=== PATIENT | male | born 1975 | race Caucasian/White ===

== ENCOUNTER 2022-03-13 17:18 | Emergency (ER) | payer SELFPAY ==
[~2022-03-13] VITALS: Ht 188 cm; Wt 84.1 kg
[2022-03-13 18:11] VITALS: BP 128/88
== END 2022-03-13 21:14 | disposition left against medical advice (07) ==
LOC: ER 17:18
DX: M54.59 Other low back pain (principal); Z53.21 Procedure and treatment not carried out due to patient leaving prior to being seen by health care provider

== ENCOUNTER 2025-04-02 14:35 | Emergency (ER) | payer MEDICAID, OTHER ==
[~2025-04-02] VITALS: Ht 188 cm; Wt 79.5 kg
--- NOTE | 2025-04-02 14:55 | ED.PDOC ---
HPI Comments This is a 49 year-old male, with a PMHX of Carditis and Mitral Valve issues, who presents to the ED via EMS with a chief complaint of pacemaker malfunction. Patient states that prior to the pacemaker going off, he experienced right sided chest pain. Patient reports additional symptoms of fatigue as of recently. Patient reports having heart surgery X3 years ago for Carditis and Mitral Valve issues. Upon evaluation, patients HR varies between the 130s to 150s. Patient has no further complaints at this time and otherwise denies cough, SOB, fever, chills, N/V/D, or palpitations. Time Seen by MD: 14:44 Reviewed Notes: Nurses Notes, Financial Solutions Advisor Notes, Medications, Allergies Allergies: Coded Allergies: NO KNOWN ALLERGIES (Unverified , 04/02/25) Information Source: Patient, Emergency Med Personnel Mode of Arrival: EMS Severity: Moderate Timing: Minutes Duration: Since onset Location: Chest (R) Radiation: No Radiation Onset: At Rest, With Light Exertion, With Heavy Exertion Associated Signs and Symptoms: Other (fatigue ) Past Medical History Past Medical History (Other): carditis Surgical History (Other): heart surgery Family History Family History: Reviewed,noncontributory to illness, No family hx of Cancer, No family hx of DM, No family hx of Heart telly, No family hx of HTN, No family hx ofKidney telly, No family hx of Liver telly, No family hx of Lung telly, No family hx of Stroke Social History Smoker: Non-Smoker Alcohol: Denies ETOH Use Drugs: Denies Drug Use Lives In: Home Constitutional: reports: fatigue; denies: chills, diaphoresis, fever, malaise, sweats, weakness, others EENTM: denies: blurred vision, double vision, ear bleeding, ear discharge, ear drainage, ear pain, ear ringing, eye pain, eye redness, hearing loss, mouth pain, mouth swelling, nasal discharge, nose bleeding, nose congestion, nose pain, photophobia, tearing, throat pain, throat swelling, voice changes, others Respiratory: denies: cough, hemoptysis, orthopnea, SOB at rest, shortness of breath, SOB with excertion, stridor, wheezing, others Cardiovascular: reports: chest pain, others (pacemaker went off ); denies: dizzy spells, diaphoresis, Dyspnea on exertion, edema, irregular heart beat, left arm pain, lightheadedness, palpitations, PND, syncope Gastrointestinal: denies: abdomen distended, abdominal pain, blood streaked bowels, constipated, diarrhea, dysphagia, difficulty swallowing, hematemesis, me bayron, nausea, poor appetite, poor fluid intake, rectal bleeding, rectal pain, vomiting, others Genitourinary: denies: burning, dysuria, flank pain, frequency, hematuria, incontinence, penile discharge, penile sore, pain, testicle pain, testicle swelling, urgency, others Neurological: denies: dizziness, fainting, headache, left sided numbness, left sided weakness, numbness, paresthesia, pre-existing deficit, right sided numbness, right sided weakness, seizure, speech problems, tingling, tremors, weakness, others Musculoskeletal: denies: back pain, gout, joint pain, joint swelling, muscle pain, muscle stiffness, neck pain, others Integumetry: denies: bruises, change in color, change in hair/nails, dryness, laceration, lesions, lumps, rash, wounds, others Allergic/Immunocompromised: denies: Difficulty Healing, Frequent Infections, Hives, Itching, others Hematologic/Lymphatic: denies: anemia, blood clots, easy bleeding, easy bruising, swollen glands, others Endocrine: denies: excessive hunger, excessive sweating, excessive thirst, excessive urination, flushing, intolerance to cold, intolerance to heat, unexplained weight gain, unexplained weight loss, others Psychiatric: denies: anxiety, bipolar disorder, depression, hopeless, panic disorder, schizophrenia, sleepless, suicidal, others All Other Systems: Reviewed and Negative Physical Exam General Appearance: Moderate Distress HEENT: Normal ENT Inspection, Pharynx Normal, TMs Normal Neck: Full Range of Motion, Non-Tender, Normal, Normal Inspection Respiratory: Chest Non-Tender, Lungs Clear, No Accessory Muscle Use, No Respiratory Distress, Normal Breath Sounds Cardiovascular: No Edema, No JVD, No Murmur, No Gallop, Normal Peripheral Pulses, Regular Rate/Rhythm Breast Exam: Deferred Gastrointestinal: No Organomegaly, Non Tender, No Pulsatile Mass, Normal Bowel Sounds, Soft Genitalia: Deferred Pelvic: Deferred Rectal: Deferred Extremities: No calf tenderness, Normal capillary refill, Normal inspection, Normal range of motion, Non-tender, No pedal edema Musculoskeletal : Apperance: Normal Neurologic: Alert, dietetic assistant II-XII nml as Tested, No Motor Deficits, Normal Affect, Normal Mood, No Sensory Deficits Cerebellar Function: Normal Reflexes: Normal Skin: Dry, Normal Color, Warm Peripheral Pulses: 3+ Radial (R), 3+ Radial (L) Lymphatic: No Adenopathy EKG EKG : Pulse Rate (adult): 138 Premier: Normal Cardiac Rhythm: Afib Block: None Hypertrophy: None ST: Normal Was a procedure done? Was a procedure done?: No CP Differential Dx Differential Diagnosis: A-fib, A-Flutter, Angina, Anxiety / Panic Attack, Atrial Dysrhythmia, Electrolyte Disorder, Hyperthyroidism Differential Diagnosis: HTN Essential Differential Diagnosis: Chest Wall Pain X-Ray, Labs, Meds, VS Vital Signs Date Time Temp Pulse Resp B/P (MAP) Pulse Ox O2 Delivery O2 Flow Rate FiO2 04/02/25 15:43 98.4 86 16 101/66 (78) 97 98.4 04/02/25 15:43 86 16 97 Room Air* 0 21 04/02/25 14:55 138 04/02/25 14:40 138 04/02/25 14:38 100.0 159 16 116/84 100 100.0 Lab Test 04/02/25 15:15 Range/Units White Blood Count 12.3 H 4.4-10.8 10^3/uL Red Blood Count 4.57 4.5-5.90 10^6/uL Hemoglobin 15.5 13.5-17.5 g/dL Hematocrit 43.8 41.0-53.0 % Mean Corpuscular Volume 95.9 80.0-100.0 fL Mean Corpuscular Hemoglobin 33.9 H 28.0-32.0 pg Mean Corpuscular Hemoglobin Concent 35.3 32.0-36.0 g/dL Red Cell Distribution Width 12.5 11.8-14.3 % Platelet Count 211 140-450 10^3/uL Mean Platelet Volume 7.9 6.9-10.8 fL Neutrophils (%) (Auto) 79.0 37.0-80.0 % Lymphocytes (%) (Auto) 8.6 L 10.0-50.0 % Monocytes (%) (Auto) 10.2 0.0-12.0 % Eosinophils (%) (Auto) 1.6 0.0-7.0 % Basophils (%) (Auto) 0.6 0.0-2.0 % Neutrophils # (Auto) 9.7 H 1.6-8.6 10 ^3/uL Lymphocytes # (Auto) 1.1 0.4-5.4 10 ^3/uL Monocytes # (Auto) 1.3 0-1.3 10 ^3/uL Eosinophils # (Auto) 0.2 0-0.8 10 ^3/uL Basophils # (Auto) 0.1 0-0.2 10 ^3/uL Nucleated Red Blood Cells 0.1 % Sodium Level 139 136-145 mmol/L Potassium Level 4.6 3.5-5.1 mmol/L Chloride Level 106 98-107 mmol/L Carbon Dioxide Level 23 20-31 mmol/L Anion Gap 10 5-15 Blood Urea Nitrogen 19 9-23 mg/dL Creatinine 1.30 0.700-1.30 mg/dL Glomerular Filtration Rate Calc 68 >90 mL/min BUN/Creatinine Ratio 14.6 10.0-20.0 Serum Glucose 103 74-106 mg/dL Calcium Level 9.2 8.7-10.4 mg/dL Total Bilirubin 2.2 H 0.2-1.0 mg/dL Aspartate Amino Transferase (AST) 28 13-40 U/L Alanine Aminotransferase (ALT) 15 7-40 U/L Alkaline Phosphatase 83 46-116 U/L Troponin I High Sensitivity Pending Total Protein 7.3 5.7-8.2 g/dL Albumin 4.5 3.2-4.8 g/dL Patient alert pain Came in because of chest pain. Possibly from Ms. Firing of his defibrillator. Vitals stable. Initial rhythm was irregular. He did have normal rhythm following. WBC slightly elevated. Possible dehydration. Hemoglobin within normal limits. Explained to the patient. Continue monitoring. Images Reviewed?: Images reviewed and evaluated by me Time of 1ST Reevaluation: 15:22 Reevaluation 1ST: Unchanged Patient Education/Counseling: Diagnosis, Treatment Family Education/Counseling: No Family Present Medical Screening: No EMC Exist At This Time SEPSIS Sepsis Screen Physician Orders Chest Portable (04/02/25 14:58) Troponin-I Hs (04/02/25 14:58) Troponin-I Hs (04/02/25 15:58) Troponin-I Hs (04/02/25 17:58) Fueler To Assess Pacemaker (04/02/25 14:58) Electrocardigram (04/02/25 16:04) Electrocardigram (04/02/25 18:04) Vital Signs Date Time Temp Pulse Resp B/P (MAP) Pulse Ox O2 Delivery O2 Flow Rate FiO2 04/02/25 15:43 98.4 86 16 101/66 (78) 97 98.4 04/02/25 15:43 86 16 97 Room Air* 0 21 04/02/25 14:55 138 04/02/25 14:40 138 04/02/25 14:38 100.0 159 16 116/84 100 100.0 Laboratory Tests Test 04/02/25 15:15 White Blood Count 12.3 10^3/uL (4.4-10.8) H Departure 1 Departure Time of Disposition: 15:55 Impression: Primary Impression: Chest pain of unknown etiology Disposition: ADMITTED INPATIENT Admit to: Med Surg Condition: Guarded Critical Care Note Critical Care Time?: No Stability Stability form required: No Heart Score Heart Score: Heart Score Response (Comments) Value History Highly Suspicious 2 EKG Normal 0 Age 45-64 1 Risk Factors 1 or 2 risk factors 1 Troponin Normal limit 0 Total 4 I personally scribed for ACE GOODWIN MD ([email or web address]) on 04/02/25 at 14:55. Electronically submitted by Yessica Aiken ([facility]). ACE GOODWIN MD Apr 02, 2025 14:55
--- NOTE | 2025-04-02 15:18 | ECG ---
[facility] Test Date: 2025-04-02 Test Time: 14:38:43 Pat Name: MERCY COTTO Department: Room: Gender: M Assistant Fitness Manager: CAITLIN : 1975 Requested By: ACE GOODWIN Order Number: [id number] Reading MD: Measurements Intervals [place] Rate: 138 P: 0 ME: 0 QRS: 166 QRSD: 108 T: -27 QT: 334 QTc: 506 Interpretive Statements Atrial fibrillation Lateral infarct, acute (LAD) Probable anteroseptal infarct, old Please click the below link to view image of tracing.
--- NOTE | 2025-04-02 15:22 | DVH ---
CHEST RADIOGRAPH REASON FOR EXAM: Shortness of breath COMPARISON: XR CHEST 1 VIEW on DOS: 12/26/23 TECHNIQUE: One view of the chest is provided FINDINGS: The cardiomediastinal silhouette is within normal limits for size. There is an AICD. There are surgical changes in the mediastinum. There is aortic valvuloplasty. There is no focal airspace d isease. There is no significant pleural effusion. There is no pneumothorax. No acute osseous abnorma lity is identified. IMPRESSION: No radiographic evidence of acute cardiopulmonary process.
[2025-04-02 15:29] LABS: Hematocrit 43.8 % (41.0-53.0); Hemoglobin 15.5 g/dL (13.5-17.5); Mean Corpuscular Hemoglobin 33.9 pg (28.0-32.0); Mean Corpuscular Volume 95.9 fL (80.0-100.0); Nucleated Red Blood Cells % 0.1 %
[2025-04-02 15:43] VITALS: BP 101/66; PULSE 86; RESP 16; TEMP 98.4; O2SAT 97
[2025-04-02 15:53] LABS: Alanine Aminotransferase 15 U/L (7-40); Albumin 4.5 g/dL (3.2-4.8); Alkaline Phosphatase 83 U/L (46-116); Anion Gap 10 (5-15); BUN/Creatinine Ratio 14.6 (10.0-20.0); Bilirubin, Total 2.2 mg/dL (0.2-1.0); Blood Urea Nitrogen 19 mg/dL (9-23); Calcium 9.2 mg/dL (8.7-10.4); Carbon Dioxide 23 mmol/L (20-31); Chloride 106 mmol/L (98-107); Glucose 103 mg/dL (74-106); Potassium 4.6 mmol/L (3.5-5.1); Sodium 139 mmol/L (136-145); Total Protein 7.3 g/dL (5.7-8.2)
[2025-04-02] MEDS: SACUBITRIL-VALSARTAN 24mg/26mg TAB PO ONE (16:24)
--- NOTE | 2025-04-02 18:22 | ECG ---
[facility] Test Date: 2025-04-02 Test Time: 15:26:41 Pat Name: MERCY COTTO Department: Room: Gender: M Overseamer: CAITLIN : 1975 Requested By: ACE GOODWIN Order Number: [id number] Reading MD: Measurements Intervals [place] Rate: 86 P: 37 AR: 171 QRS: 142 QRSD: 113 T: 87 QT: 383 QTc: 458 Interpretive Statements Sinus rhythm Probable left atrial enlargement Abnormal lateral Q waves Probable anteroseptal infarct, old Please click the below link to view image of tracing.
== END 2025-04-02 16:23 | disposition left against medical advice (07) ==
LOC: EDBD 14:35 → ER 14:35
DX: R07.89 Other chest pain (principal); Z95.0 Presence of cardiac pacemaker
CPT/HCPCS: 36415; 71045; 80053; 84484; 85025; 93005